=== PATIENT | male | born 1955 | race African-American/Black ===

== ENCOUNTER 2017-05-24 11:12 | Emergency (ER) | payer OTHER ==
[~2017-05-24] VITALS: Ht 175.3 cm; Wt 63.5 kg
[2017-05-24] MEDS ORDERED: DOXA1 PO (11:18)
[2017-05-24] MEDS ORDERED: SIMV20TA6 PO (11:18)
[2017-05-24] MEDS ORDERED: LISI2.5T2 PO (11:18)
[2017-05-24] MEDS ORDERED: PERTUSS(ACELL),DIPH,TET VAC/PF 0.5 ML VIAL IM ONE (12:30)
[2017-05-24] MEDS ORDERED: ONDANSETRON HCL 4 MG/2 ML VIAL IVP ONE (12:45)
[2017-05-24] MEDS ORDERED: SODIUM CHLORIDE 0.9% 1,000 ML IV ONE (12:45)
[2017-05-24] MEDS ORDERED: MORPHINE SULFATE 4 MG/ML SYRINGE IVP ONE (12:45)
[2017-05-24] MEDS ORDERED: BACITRACIN 0.9 GM PACKET OINTMENT TP ONE ×2 (13:20→13:30)
[2017-05-24 14:15] VITALS: BP 138/77
== END 2017-05-24 14:17 | disposition home or self-care (01) ==
LOC: EEVIPCON 11:14 → EMS 11:14
DX: S01.01XA Laceration without foreign body of scalp, initial encounter (principal); S13.4XXA Sprain of ligaments of cervical spine, initial encounter; S20.212A Contusion of left front wall of thorax, initial encounter; I10 Essential (primary) hypertension; F17.210 Nicotine dependence, cigarettes, uncomplicated; Y04.0XXA Assault by unarmed brawl or fight, initial encounter; Y93.89 Activity, other specified; Y92.89 Other specified places as the place of occurrence of the external cause; Y99.8 Other external cause status
CPT/HCPCS: 12002; 70450; 71020; 71100; 72125; 90471; 90715; 96361; 96374; 96375; 99285; 99406; J2270; J2405; J7030

== ENCOUNTER 2017-05-30 07:18 | Emergency (ER) | payer OTHER ==
[~2017-05-30] VITALS: Ht 177.8 cm; Wt 63.6 kg
[~2017-05-30 07:18] MED LIST: DOXA1 PO; LISI2.5T2 PO; SIMV20TA6 PO
[2017-05-30 08:36] VITALS: BP 153/79
[2017-05-30] MEDS ORDERED: OxyCODONE HCL/ACETAMINOPHEN 10-325 MG TABLET PO ONE (09:15)
== END 2017-05-30 09:25 | disposition home or self-care (01) ==
LOC: EMS 07:19
DX: S20.212A Contusion of left front wall of thorax, initial encounter (principal); S09.90XA Unspecified injury of head, initial encounter; I10 Essential (primary) hypertension; F17.210 Nicotine dependence, cigarettes, uncomplicated; X58.XXXA Exposure to other specified factors, initial encounter; Y93.89 Activity, other specified; Y92.89 Other specified places as the place of occurrence of the external cause; Y99.8 Other external cause status
CPT/HCPCS: 71020; 99284; 99406